=== PATIENT | female | born 1995 | race Caucasian/White ===

== ENCOUNTER 2017-01-04 20:33 | Emergency (ER) | payer BC ==
[~2017-01-04] VITALS: Ht 165.1 cm; Wt 66.0 kg
[~2017-01-04 20:33] MED LIST: CIPR500T94 PO; PHEN-318 PO
--- NOTE | 2017-01-04 21:55 | ED.ADGEN ---
Past History Past Medical History: GERD Past Surgical History: No Surgical History Smoking: Non-smoker Alcohol Use: None Drug Use: None Adult General Chief Complaint Chief Complaint chest pain [facility] HPI Patient is a [21 y.o female with chest pain x 2 days. no trauma to chest. no recent URI sx. states she has a hx of GERD and stomach ulcers but hasn't needed regular meds for past 2 years. she has changed her diet and that usually controls it. no fever. pain mostly when taking in a deep breath. pain when laying on right side. no SOA, no n/v today. she vomited yesterday but ate normally today. no family hx of young cardiac abnormalities. pt denies new partners, vaginal discharge, and unprotected sex. she is not interested in a pelvic exam Review of Systems Review of Systems Constitutional: Denies fever or chills [] Eyes: Denies change in visual acuity, redness, or eye pain [] HENT: Denies nasal congestion or sore throat [] Respiratory: Denies cough or shortness of breath [] Cardiovascular: No additional information not addressed in HPI [] GI: Denies abdominal pain, nausea, vomiting, bloody stools or diarrhea [] : Denies dysuria or hematuria [] Musculoskeletal: Denies back pain or joint pain [] Integument: Denies rash or skin lesions [] Neurologic: Denies headache, focal weakness or sensory changes [] Endocrine: Denies polyuria or polydipsia [] Allergies Allergies Allergies Coded Allergies Type Severity Reaction Last Updated Verified No Known Drug Allergies 12/16/14 No Physical Exam Physical Exam Constitutional: Well developed, well nourished, no acute distress, non-toxic appearance. [] HENT: Normocephalic, atraumatic, bilateral external ears normal, oropharynx moist, no oral exudates, nose normal. [] Eyes: PERRLA, EOMI, conjunctiva normal, no discharge. [] Neck: Normal range of motion, no tenderness, supple, no stridor. [] Cardiovascular:Heart rate regular rhythm, no murmur mild tenderness to palpate mid sternum but pain not reproducible. no pain to palpate right chest Lungs & Thorax: Bilateral breath sounds clear to auscultation [] Abdomen: Bowel sounds normal, soft, no tenderness, no masses, no pulsatile masses. no RUQ pain to palpation Skin: Warm, dry, no erythema, no rash. [] Back: No tenderness, no CVA tenderness. no pain to palpate right CVA Extremities: No tenderness, no cyanosis, no clubbing, ROM intact, no edema. [] Neurologic: Alert and oriented X 3, normal motor function, normal sensory function, no focal deficits noted. [] Psychologic: Affect normal, judgement normal, mood normal. [] Current Patient Data Vital Signs Vital Signs Date Time Temp Pulse Resp B/P (MAP) Pulse Ox O2 Delivery O2 Flow Rate FiO2 01/04/17 20:33 98.7 81 16 99 Room Air Lab Results Laboratory Tests Test 01/04/17 20:40 01/04/17 21:03 Urine Collection Type Unknown Urine Color Berta Urine Clarity Cloudy Urine pH 5.5 Urine Specific [place] 1.025 Urine Protein Neg (NEG-TRACE) Urine Glucose (UA) Neg mg/dL (NEG) Urine Ketones (Stick) Trace mg/dL (NEG) Urine Blood Neg (NEG) Urine Nitrite Pos (NEG) Urine Bilirubin Neg (NEG) Urine Urobilinogen Dipstick 0.2 mg/dL (0.2 mg/dL) Urine Leukocyte Esterase Small (NEG) Urine RBC 0 /HPF (0-2) Urine WBC 11-20 /HPF (0-4) Urine Squamous Epithelial Cells Occ /LPF Urine Bacteria Many /HPF (0-FEW) Urine Mucus Slight /LPF POC Urine HCG, Qualitative hcg negative (Negative) EKG EKG HR 70, time 2052, nml PRS and QT[] Radiology/Procedures Radiology/Procedures nml CXR[] Course & Med Decision Making Course & Med Decision Making Pertinent Labs and Imaging studies reviewed. (See chart for details) nml heart sounds no murmur, lungs clear. hx of GERD and vomited yesterday. will give zofran and pepcid BID, tylenol for pain. f/u pcp in 4-5 days. no uri hx and no ST elev on EKG to suggest pericarditis. no uri sx and lungs clear and cxr neg for acute pathology. she is on BCP but not tachy, neg ekg, no leg swelling, no other risk except BCP, denies SOA, low suspicion for PE +UTI. WILL START bactrim, zofran, pepcid. Final Impression Final Impression uti[] Problems: Dragaylin Disclaimer Dragon Disclaimer This electronic medical record was generated, in whole or in part, using a voice recognition dictation system. CHRIS SCHWAB MD Jan 04, 2017 21:55
[2017-01-04 22:12] LABS: BILIRUBIN,URINE NEG (NEG); CLARITY,URINE CLOUDY; COLOR,URINE AMBER; GLUCOSE,URINE NEG (NEG); NITRITE,URINE POS (NEG); UROBILINOGEN,URINE 0.2 mg/dL (0.2 mg/dL)
[2017-01-04 22:23] LABS: BACTERIA,URINE MANY /HPF (0-FEW); RBC,URINE 0 /HPF (0-2); SQUAMOUS EPITHELIAL CELL,UR OCC /LPF
[2017-01-04] MEDS ORDERED: SULF1TAB24 PO (22:31)
[2017-01-04] MEDS ORDERED: ONDA4TAB10 SL (22:31)
[2017-01-04] MEDS ORDERED: FAMO-63 PO (22:31)
[2017-01-04 22:45] VITALS: BP 115/68
[2017-01-04] MEDS ORDERED: FAMOTIDINE 20 MG TABLET PO ONE (22:45)
[2017-01-04] MEDS ORDERED: SMZ/TMP 800/160MG TABLET. PO ONE (22:45)
--- NOTE | 2017-01-05 01:02 | EKG ---
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
--- NOTE | 2017-01-05 07:35 | RAD ---
AP chest, 01/04/2017: History: Chest pain The heart size and pulmonary vascularity are normal. No pulmonary infiltrate is seen. There is no evidence of pleural fluid. IMPRESSION: No acute cardiopulmonary abnormality is detected.
== END 2017-01-04 22:49 | disposition home or self-care (01) ==
LOC: ER 20:33
DX: N39.0 Urinary tract infection, site not specified (principal); K21.9 Gastro-esophageal reflux disease without esophagitis; Z87.19 Personal history of other diseases of the digestive system
CPT/HCPCS: 71010; 81001; 81025; 87086; 93005; 99285-25

== ENCOUNTER → 2017-04-01 | Outpatient (CLI) | payer BC ==
[~2017-04-01] MED LIST changes: +FAMO-63 PO; +IOHEXOL 240 MG/ML 50ML VIAL. ONE; +IOHEXOL 240 MG/ML 50ML VIAL. PO ONE; +IOHEXOL 300 MG/ML 75 ML VIAL. IV ONE; +ONDA4TAB10 SL; +SULF1TAB24 PO
--- NOTE | 2017-04-01 14:29 | RAD ---
Examination: CT of the abdomen pelvis with oral and IV contrast History: History of left upper quadrant pain, fever, nausea, vomiting. Comparison: None available Technique: Axial CT images of the abdomen pelvis were performed with oral and IV contrast. Coronal and sagittal reformats are performed. PQRS Compliance Statement: One or more of the following individualized dose reduction techniques were utilized for this examination: 1. Automated exposure control 2. Adjustment of the mA and/or kV according to patient size 3. Use of iterative reconstruction technique Findings: The visualized bibasal lungs are clear. No evidence of free air identified in the abdomen. The visualized liver, spleen, adrenals grossly appears unremarkable. The gallbladder is mildly distended. The stomach is mildly distended. The visualized pancreas grossly appear unremarkable. The small bowel is nondilated. Feces and gas noted in the colon. The appendix is not clearly identified however no evidence of inflammatory fat stranding identified in the right lower quadrant of the abdomen. Urinary bladder is mildly distended. The bilateral kidneys enhance symmetrically. There is vague subtle hypodensity identified in the superior pole of the left kidney and in the mid and inferior pole of the left kidney could be tiny cysts or small foci of focal pyelonephritis(nephronia). The visualized pancreas grossly appears unremarkable. No evidence of lytic bony destructive lesion. Small amount of free fluid identified in the pelvis. The evaluation of the adnexa is somewhat limited. Impression: 1. There are vague subtle hypodensities identified in the superior pole of the left kidney and in the mid and inferior pole of the left kidney could be tiny cysts or small foci of focal pyelonephritis(nephronia). Correlate clinically with urinary tract infection. Correlate with urinalysis. 2. Small amount of free fluid identified in the pelvis.
== END | disposition home or self-care (01) ==
LOC: CT 13:06
PROVIDERS: ATTEND Physician Assistant
DX: K82.8 Other specified diseases of gallbladder (principal); K31.89 Other diseases of stomach and duodenum; N32.89 Other specified disorders of bladder; K21.9 Gastro-esophageal reflux disease without esophagitis
CPT/HCPCS: 74177; Q9966; Q9967

== ENCOUNTER 2017-10-14 22:30 | Emergency (ER) | payer BC ==
[~2017-10-14] VITALS: Ht 165.1 cm; Wt 65.7 kg
[~2017-10-14 22:30] MED LIST changes: -IOHEXOL 240 MG/ML 50ML VIAL. ONE; -IOHEXOL 240 MG/ML 50ML VIAL. PO ONE; -IOHEXOL 300 MG/ML 75 ML VIAL. IV ONE
--- NOTE | 2017-10-14 22:36 | ED.ADGEN ---
Past History Past Medical History: GERD, UTI Past Surgical History: No Surgical History Smoking: Non-smoker Alcohol Use: None Drug Use: None Adult General Chief Complaint Chief Complaint ".. I am having abdomen pain...". I ve had a sore throat.. I called my Stept. Mom .. she is a nurse.. and she told me to take tylenol and ibuprofen for pain and pseudoephedrine in case it was just virus.... However I was taking 4 ibuprofen every 4 hours not thinking about how that would upset my stomach... I' m had gastritis before.... Now I, hurt up here - (Points to Epigastric_) HPI HPI Patient is a 22 year old female who presents with pharyngitis, epigastric pain and malaise. No travel or specific ill contacts. Patient gives history of excessive use of ibuprofen for her malaise and pharyngitis. Patient had a normal stool today. Stool was brown in color no obvious bleeding. No history of bad food. No history of drug use. No complaints of vaginal discharge. Some dysuria. Patient has had previous urinary tract infections that caused her GI symptoms. Pt . does not have hx of immunosuppression. No hx. of trauma. Review of Systems Review of Systems Constitutional: Denies fever or chills [] Eyes: Denies change in visual acuity, redness, or eye pain [] HENT: Denies nasal congestion. complaints of sore throat [] Respiratory: Denies cough or shortness of breath [] Cardiovascular: No additional information not addressed in HPI [] GI: Complains of abdominal pain, nausea,. Denies vomiting, bloody stools or diarrhea [] : Denies dysuria or hematuria [] Musculoskeletal: Denies back pain or joint pain [] Integument: Denies rash or skin lesions [] Neurologic: Denies headache, focal weakness or sensory changes [] Endocrine: Denies polyuria or polydipsia [] All other systems were reviewed and found to be within normal limits, except as documented in this note. Family History Family History Non-contributory Current Medications Current Medications Current Medications Medications (Trade) Dose Ordered Sig/Khari Start Time Stop Time Status Last Admin Dose Admin Acetaminophen (Tylenol) 1,000 mg 1X ONCE 10/14/17 23:00 10/14/17 23:01 DC 10/14/17 23:01 1,000 MG Cephalexin HCl (Keflex) 500 mg 1X ONCE 10/14/17 23:00 10/14/17 23:01 DC 10/14/17 23:01 500 MG Famotidine (Pepcid) 20 mg 1X ONCE 10/14/17 23:00 10/14/17 23:01 DC 10/14/17 23:01 20 MG Magnesium Hydroxide (Milk Of Magnesia) 2,400 mg 1X ONCE 10/14/17 23:00 10/14/17 23:01 DC 10/14/17 23:01 2,400 MG Allergies Allergies Allergies Coded Allergies Type Severity Reaction Last Updated Verified sulfamethoxazole Allergy Unknown Hives 04/01/17 Yes trimethoprim Allergy Unknown Hives 04/01/17 Yes Physical Exam Physical Exam Constitutional: Well developed, well nourished, no acute distress, non-toxic appearance. [] HENT: Normocephalic, atraumatic, bilateral external ears normal, TM's not injected, oropharynx moist,mild injection, no oral exudates, nose normal. [] Eyes: PERRLA, EOMI, conjunctiva normal, no discharge. [] Neck: Normal range of motion, no tenderness, supple, no stridor. [] Cardiovascular:Heart rate regular rhythm, no murmur [] Lungs & Thorax: Bilateral breath sounds clear to auscultation [] Abdomen: Bowel sounds normal, soft, epigastric tenderness, no masses, no pulsatile masses. [] Decline further exam. No true rebound. Skin: Warm, dry, no erythema, no rash. [] Back: No tenderness, no CVA tenderness. [] Extremities: No tenderness, no cyanosis, no clubbing, ROM intact, no edema. [] No psoas or heel tap. Neurologic: Alert and oriented X 3, normal motor function, normal sensory function, no focal deficits noted. [] Psychologic: Affect anxious, judgement normal, mood normal. [] Current Patient Data Vital Signs Vital Signs Date Time Temp Pulse Resp B/P (MAP) Pulse Ox O2 Delivery O2 Flow Rate FiO2 10/14/17 23:10 85 16 128/61 (83) 100 Room Air 10/14/17 22:30 98.9 Lab Results Laboratory Tests Test 10/14/17 21:57 10/14/17 22:55 POC Urine HCG, Qualitative hcg negative (Negative) Urine Collection Type Unknown Urine Color Straw Urine Clarity Hazy Urine pH 6.5 Urine Specific [place] 1.025 Urine Protein Neg (NEG-TRACE) Urine Glucose (UA) Neg mg/dL (NEG) Urine Ketones (Stick) Neg mg/dL (NEG) Urine Blood Small (NEG) Urine Nitrite Neg (NEG) Urine Bilirubin Neg (NEG) Urine Urobilinogen Dipstick 0.2 mg/dL (0.2 mg/dL) Urine Leukocyte Esterase Small (NEG) Urine RBC 3-5 /HPF (0-2) Urine WBC 20-40 /HPF (0-4) Urine Squamous Epithelial Cells Mod /LPF Urine Bacteria Mod /HPF (0-FEW) Urine Opiates Screen Neg (NEG) Urine Methadone Screen Neg (NEG) Urine Barbiturates Neg (NEG) Urine Phencyclidine Screen Neg (NEG) Urine Amphetamine/Methamphetamine Neg (NEG) Urine Benzodiazepines Screen Neg (NEG) Urine Cocaine Screen Neg (NEG) Urine Cannabinoids Screen Neg (NEG) Urine Ethyl Alcohol Neg (NEG) EKG EKG [] Radiology/Procedures Radiology/Procedures [] Course & Med Decision Making Course & Med Decision Making Pertinent Labs and Imaging studies reviewed. (See chart for details). Pt to stay on clear fluid diet to allow evens rest. No solids or milk products x 24 hrs. Gargle with Listerine 4 x day and as needed. Take Tylenol for pain. Avoid Ibuprofen for pain, because it can cause gastritis and you have over used it. Zantac 150 twice a day. Take Keflex 500 three times a day. Follow up with primary. Return if any concerns. Follow up urine cultures. [] Final Impression Final Impression 1. Abdomen Pain[] 2. Gastritis 3. Pharyngitis 4. Urinary tract infection Dragon Disclaimer Dragon Disclaimer This electronic medical record was generated, in whole or in part, using a voice recognition dictation system. MONICA GARDINER MD Oct 14, 2017 22:36
[2017-10-14] MEDS ORDERED: CEPHALEXIN 250 MG CAPSULE PO ONE (23:00)
[2017-10-14] MEDS ORDERED: MAGNESIUM HYDROXIDE 2,400 MG/30 ML ORAL.SUSP. PO ONE (23:00)
[2017-10-14] MEDS ORDERED: FAMOTIDINE 20 MG TABLET PO ONE (23:00)
[2017-10-14] MEDS ORDERED: ACETAMINOPHEN 500 MG TABLET PO ONE (23:00)
[2017-10-14] MEDS ORDERED: RANI150T21 PO (23:06)
[2017-10-14] MEDS ORDERED: CEPH-264 PO (23:06)
[2017-10-14 23:10] VITALS: BP 128/61
[2017-10-14 23:18] LABS: BACTERIA,URINE MOD /HPF (0-FEW); BILIRUBIN,URINE NEG (NEG); CLARITY,URINE HAZY; COLOR,URINE STRAW; GLUCOSE,URINE NEG (NEG); NITRITE,URINE NEG (NEG); SQUAMOUS EPITHELIAL CELL,UR MOD /LPF; UROBILINOGEN,URINE 0.2 mg/dL (0.2 mg/dL); WBC,URINE 20-40 /HPF (0-4)
[2017-10-14 23:22] LABS: AMPHETAMINE/METHAMPHETAMINE NEG (NEG); BARBITURATES NEG (NEG); BENZODIAZEPINES NEG (NEG); CANNABINOIDS NEG (NEG); COCAINE NEG (NEG); METHADONE NEG (NEG); OPIATES NEG (NEG); PHENCYCLIDINE NEG (NEG)
== END 2017-10-14 23:16 | disposition home or self-care (01) ==
LOC: ER 22:30
DX: K29.70 Gastritis, unspecified, without bleeding (principal); N39.0 Urinary tract infection, site not specified; J02.9 Acute pharyngitis, unspecified; K21.9 Gastro-esophageal reflux disease without esophagitis; Z87.440 Personal history of urinary (tract) infections; Z88.1 Allergy status to other antibiotic agents
CPT/HCPCS: 36415; 80307; 81001; 81025; 99284; G0479